=== PATIENT | female | born 2000 | race Caucasian/White ===

== ENCOUNTER 2018-05-15 15:14 | Emergency (ER) | payer OTHER ==
[2018-05-15] MEDS: HYDROCODONE/APAP (5/325) TAB PO (17:03)
== END 2018-05-15 18:31 | disposition home or self-care (01) ==
LOC: FTE 18:31
DX: M25.531 Pain in right wrist (principal); M25.512 Pain in left shoulder; R07.9 Chest pain, unspecified
CPT/HCPCS: 71045; 73110-RT; 99284-25